=== PATIENT | male | born 1980 | race African-American/Black ===

== ENCOUNTER 2021-07-26 14:04 | Outpatient (CLI) | payer OTHER, SELFPAY | END 2021-07-26 14:05 | disposition home or self-care (01) | LOC: ANHAUDASC 14:07 | PROVIDERS: Visit Provider Otolaryngology | DX: H93.11 Tinnitus, right ear (principal); H90.3 Sensorineural hearing loss, bilateral | CPT/HCPCS: 92557; 92567 ==